=== PATIENT | male | born 1935 | race Two or more races ===

== ENCOUNTER 2018-11-15 11:48 | Inpatient (IN) | payer MEDICARE, MEDICAID ==
[~2018-11-15] VITALS: Ht 172.7 cm; Wt 41.3 kg
[~2018-11-15 11:48] MED LIST: METF-416 PO; SITA100T11 PO; TAMS0.4C31 PO
[2018-11-15] MEDS ORDERED: SODIUM CHLORIDE 0.9% 1,000 ML IV ONE (12:47)
[2018-11-15] MEDS ORDERED: ONDANSETRON HCL 4MG/2ML INJ IV STA (12:47)
[2018-11-15] MEDS ORDERED: VISCOUS LIDOCAINE 2% 15 ML UDC MM STA (12:53)
[2018-11-15 13:25] LABS: BASOPHILS % 0.5 % (0.0-2.0); EOSINOPHILS % 0.7 % (0.0-5.0); HEMATOCRIT. 40.9 % (42.0-52.0); HEMOGLOBIN. 13.5 g/dL (14.0-18.0); LYMPHOCYTES % 10.1 % (20.0-50.0); MEAN CORPUSCULAR HEMOGLOBIN 28.8 pg (28.0-32.0); MEAN CORPUSCULAR VOLUME 87.2 fL (80.0-94.0); MEAN PLATELET VOLUME 10.6 fl (7.4-10.4); MONOCYTES % 5.1 % (2.0-8.0); NEUTROPHILS % 83.6 % (40.0-76.0); PLATELET 179 x1000/uL (130-400); RED BLOOD CELL COUNT 4.69 mill/uL (4.7-6.1); RED CELL DISTRIBUTION WIDTH 14.1 % (11.6-14.6)
[2018-11-15] MEDS ORDERED: ASPIRIN 81MG TABLET PO ONE (13:30)
[2018-11-15 13:33] LABS: CHLORIDE 101 mEq/L (98-107)
[2018-11-15 13:41] LABS: CREATINE KINASE 33 IU/L (39-308)
[2018-11-15 13:44] LABS: CREATINE KINASE MB FRACTION < 1.0 ng/mL (0.5-3.6)
[2018-11-15] MEDS ORDERED: AMLODIPINE 5MG TABLET PO NR (13:45)
[2018-11-15 15:59] LABS: INR 1.2; PARTIAL THROMBOPLASTIN TIME 29.9 sec (23.4-31.0); PROTHROMBIN TIME 12.1 sec (9.6-11.0)
[2018-11-15] MEDS ORDERED: HYDROCODONE/ACETAMINOPHEN 5/325MG TABLET PO PRN (17:15)
[2018-11-15] MEDS ORDERED: ACETAMINOPHEN 325MG TABLET PO PRN (17:15)
[2018-11-15] MEDS ORDERED: MAGNESIUM/ALUMINUM HYDROXIDE/SIMETHICONE 30ML UDC PO PRN (17:15)
[2018-11-15] MEDS ORDERED: CLONIDINE 0.1MG TABLET PO PRN (17:15)
[2018-11-15] MEDS ORDERED: ONDANSETRON HCL 4MG/2ML INJ IV PRN (17:15)
[2018-11-15] MEDS ORDERED: DEXTROSE 50% WATER 50ML SYRINGE IV PRN ×2 (17:15)
[2018-11-15 17:45] LABS: CLARITY URINE CLEAR (CLEAR); COLOR URINE YELLOW (YELLOW); KETONES URINE NEGATIVE (NEGATIVE); LEUKOCYTE ESTERASE URINE 2+ (NEGATIVE); NITRITE URINE POSITIVE (NEGATIVE); OCCULT BLOOD URINE NEGATIVE (NEGATIVE); PH URINE 5.5 (4.5-8.0); PROTEIN URINE NEGATIVE (NEGATIVE); SPECIFIC GRAVITY URINE 1.018 (1.005-1.030)
[2018-11-15 21:05] VITALS: BP 161/84
[2018-11-15 21:30] VITALS: BP 161/84
[2018-11-15] MEDS: BLOOD SUGAR DIAGNOSTIC STRIP TEST SCH (22:00)
[2018-11-15] MEDS: SODIUM CHLORIDE 0.45% 1,000 ML IV SCH (22:55)
[2018-11-16] VITALS: BP 151/79
[2018-11-16] MEDS ORDERED: SITA100T11 MT (03:19)
[2018-11-16] MEDS ORDERED: DILT120T13 MT (03:20)
[2018-11-16] MEDS ORDERED: TRAM50TA94 MT (03:25)
[2018-11-16] MEDS ORDERED: CYCL10TA7 MT (03:29)
[2018-11-16 04:00] VITALS: BP 152/58
[2018-11-16 06:10] LABS: BASOPHILS % 0.5 % (0.0-2.0); EOSINOPHILS % 2.9 % (0.0-5.0); HEMATOCRIT. 37.3 % (42.0-52.0); HEMOGLOBIN. 12.5 g/dL (14.0-18.0); MEAN CORPUSCULAR HEMOGLOBIN 29.3 pg (28.0-32.0); MEAN CORPUSCULAR VOLUME 87.4 fL (80.0-94.0); MEAN PLATELET VOLUME 10.7 fl (7.4-10.4); MONOCYTES % 6.5 % (2.0-8.0); NEUTROPHILS % 75.1 % (40.0-76.0); PLATELET 183 x1000/uL (130-400); RED BLOOD CELL COUNT 4.27 mill/uL (4.7-6.1); RED CELL DISTRIBUTION WIDTH 13.7 % (11.6-14.6)
[2018-11-16 06:33] LABS: CHLORIDE 102 mEq/L (98-107)
[2018-11-16] MEDS: BLOOD SUGAR DIAGNOSTIC STRIP TEST SCH ×4 (06:43→21:00)
[2018-11-16 06:49] LABS: PHOSPHORUS 2.8 mg/dL (2.5-4.9)
[2018-11-16 06:50] LABS: LDL CHOLESTEROL 121 mg/dL (5-100)
[2018-11-16 06:52] LABS: HDL CHOLESTEROL 34 mg/dL (40-59)
[2018-11-16 08:00] VITALS: BP 154/78
[2018-11-16] MEDS: METFORMIN HCL 500MG TABLET PO SCH ×2 (08:46→17:34)
[2018-11-16] MEDS: ASPIRIN 81MG EC TABLET PO SCH (08:46)
[2018-11-16] MEDS: TAMSULOSIN HCL 0.4MG SR CAPSULE PO SCH (08:47)
[2018-11-16] MEDS: AMLODIPINE 5MG TABLET PO SCH (08:47)
[2018-11-16] MEDS: MAGNESIUM OXIDE 400MG TABLET PO SCH (08:47)
[2018-11-16] MEDS ORDERED: POTASSIUM CHLORIDE 20MEQ TABLET SR PO NR (09:15)
[2018-11-16] MEDS ORDERED: MAGNESIUM 2 G PREMIX 50 ML IV NR (10:00)
[2018-11-16] MEDS ORDERED: LEVOFLOXACIN 500MG PREMIX 100 ML IV NR (11:00)
[2018-11-16] MEDS ORDERED: DOCUSATE SODIUM 100MG CAPSULE PO NR (11:15)
[2018-11-16 12:00] VITALS: BP 123/67
[2018-11-16] MEDS ORDERED: IOHEXOL-300 100 ML BOTTLE ONE (15:42)
[2018-11-16] MEDS: DOCUSATE SODIUM 100MG CAPSULE PO SCH (17:34)
[2018-11-16 20:00] VITALS: BP 157/78
[2018-11-16] MEDS: SODIUM CHLORIDE 0.45% 1,000 ML IV SCH (22:28)
[2018-11-17] VITALS: BP 145/81
[2018-11-17 04:00] VITALS: BP 151/75
[2018-11-17] MEDS: BLOOD SUGAR DIAGNOSTIC STRIP TEST SCH ×4 (07:35→21:15)
[2018-11-17 08:00] VITALS: BP 164/74
[2018-11-17] MEDS: MAGNESIUM OXIDE 400MG TABLET PO SCH (08:35)
[2018-11-17] MEDS: TAMSULOSIN HCL 0.4MG SR CAPSULE PO SCH (08:35)
[2018-11-17] MEDS: ASPIRIN 81MG EC TABLET PO SCH (08:35)
[2018-11-17] MEDS: DOCUSATE SODIUM 100MG CAPSULE PO SCH ×2 (08:35→17:01)
[2018-11-17] MEDS: METFORMIN HCL 500MG TABLET PO SCH ×2 (08:35→17:01)
[2018-11-17] MEDS: AMLODIPINE 5MG TABLET PO SCH (08:35)
[2018-11-17 09:34] LABS: BASOPHILS % 0.4 % (0.0-2.0); EOSINOPHILS % 1.9 % (0.0-5.0); HEMATOCRIT. 37.7 % (42.0-52.0); HEMOGLOBIN. 12.5 g/dL (14.0-18.0); LYMPHOCYTES % 14.5 % (20.0-50.0); MEAN CORPUSCULAR HEMOGLOBIN 28.8 pg (28.0-32.0); MEAN CORPUSCULAR VOLUME 86.7 fL (80.0-94.0); MEAN PLATELET VOLUME 10.8 fl (7.4-10.4); MONOCYTES % 4.7 % (2.0-8.0); NEUTROPHILS % 78.5 % (40.0-76.0); PLATELET 181 x1000/uL (130-400); RED BLOOD CELL COUNT 4.35 mill/uL (4.7-6.1); RED CELL DISTRIBUTION WIDTH 13.6 % (11.6-14.6)
[2018-11-17 09:46] LABS: CHLORIDE 100 mEq/L (98-107)
[2018-11-17] MEDS ORDERED: LEVOFLOXACIN 250MG PREMIX 50 ML IV SCH (11:00)
[2018-11-17 12:00] VITALS: BP 139/85
[2018-11-17] MEDS: DILTIAZEM HCL 60MG TABLET PO SCH ×3 (14:09→23:09)
[2018-11-17 16:00] VITALS: BP 122/65
[2018-11-17 20:00] VITALS: BP 147/75
[2018-11-17] MEDS: SODIUM CHLORIDE 0.45% 1,000 ML IV SCH (23:09)
[2018-11-18] VITALS: BP 119/68
[2018-11-18 04:00] VITALS: BP 149/71
[2018-11-18] MEDS: BLOOD SUGAR DIAGNOSTIC STRIP TEST SCH (06:36)
[2018-11-18] MEDS: DILTIAZEM HCL 60MG TABLET PO SCH (06:36)
[2018-11-18 07:02] LABS: BASOPHILS % 0.4 % (0.0-2.0); EOSINOPHILS % 1.4 % (0.0-5.0); HEMATOCRIT. 36.6 % (42.0-52.0); HEMOGLOBIN. 12.3 g/dL (14.0-18.0); LYMPHOCYTES % 14.7 % (20.0-50.0); MEAN CORPUSCULAR HEMOGLOBIN 29.3 pg (28.0-32.0); MEAN CORPUSCULAR VOLUME 87.3 fL (80.0-94.0); MEAN PLATELET VOLUME 11.1 fl (7.4-10.4); MONOCYTES % 5.2 % (2.0-8.0); NEUTROPHILS % 78.3 % (40.0-76.0); PLATELET 171 x1000/uL (130-400); RED CELL DISTRIBUTION WIDTH 13.5 % (11.6-14.6)
[2018-11-18 07:47] LABS: CHLORIDE 103 mEq/L (98-107)
[2018-11-18 08:00] VITALS: BP 100/61
[2018-11-18 08:40] VITALS: BP 100/61
[2018-11-18] MEDS: DOCUSATE SODIUM 100MG CAPSULE PO SCH (09:00)
[2018-11-18] MEDS: METFORMIN HCL 500MG TABLET PO SCH (09:14)
[2018-11-18] MEDS: MAGNESIUM OXIDE 400MG TABLET PO SCH (09:14)
[2018-11-18] MEDS: TAMSULOSIN HCL 0.4MG SR CAPSULE PO SCH (09:14)
[2018-11-18] MEDS: ASPIRIN 81MG EC TABLET PO SCH (09:14)
== END 2018-11-18 11:42 | disposition home health service (06) | DRG 551 ==
LOC: ER 11:48 → 8WST 13:57 → EDBEDREQ 14:07 → EDBEDREQTM 14:07 → ENRESERV 20:02
PROVIDERS: ADMIT Family Medicine Adult Medicine; ATTEND Family Medicine Adult Medicine
DX: S32.029A Unspecified fracture of second lumbar vertebra, initial encounter for closed fracture (principal); Q04.0 Congenital malformations of corpus callosum; N39.0 Urinary tract infection, site not specified; S32.049A Unspecified fracture of fourth lumbar vertebra, initial encounter for closed fracture; E86.0 Dehydration; I10 Essential (primary) hypertension; E11.9 Type 2 diabetes mellitus without complications; E83.42 Hypomagnesemia; M47.9 Spondylosis, unspecified; B96.20 Unspecified Escherichia coli [E. coli] as the cause of diseases classified elsewhere; E87.6 Hypokalemia; W18.39XA Other fall on same level, initial encounter; I48.0 Paroxysmal atrial fibrillation; K59.00 Constipation, unspecified; N40.0 Benign prostatic hyperplasia without lower urinary tract symptoms; Z90.79 Acquired absence of other genital organ(s); Z91.81 History of falling; I25.2 Old myocardial infarction; Z79.4 Long term (current) use of insulin; Y93.89 Activity, other specified; Y92.89 Other specified places as the place of occurrence of the external cause; Y99.8 Other external cause status
CPT/HCPCS: 36415; 71045; 72110; 72132; 72148; 80048; 80061; 82550; 82553; 82962; 83036; 83735; 83880; 84100; 84443; 84484; 87077; 87186; 93005; 93306; 93970; 96361; 96374; 97116; 97162; 97166; 97530; 99291; J1956; J2405; J3475; J7030; Q9967; 97763-GP

== ENCOUNTER 2018-12-17 07:49 | Inpatient (IN) | payer MEDICARE, MEDICAID ==
[~2018-12-17] VITALS: Ht 157.5 cm; Wt 39.9 kg
[~2018-12-17 07:49] MED LIST changes: +CYCL10TA7 MT; +DILT120T13 MT; +TRAM50TA94 MT
[2018-12-17] MEDS ORDERED: MIRT15TA6 PO (07:56)
[2018-12-17] MEDS ORDERED: MAGN200T5 PO (07:56)
[2018-12-17] MEDS ORDERED: LACT10SO6 PO (07:56)
[2018-12-17] MEDS ORDERED: PRED5TAB48 PO (07:56)
[2018-12-17] MEDS ORDERED: SODIUM CHLORIDE 0.9% 1,000 ML IV ONE (08:56)
[2018-12-17 09:31] LABS: CLARITY URINE CLEAR (CLEAR); COLOR URINE YELLOW (YELLOW); KETONES URINE NEGATIVE (NEGATIVE); LEUKOCYTE ESTERASE URINE NEGATIVE (NEGATIVE); NITRITE URINE NEGATIVE (NEGATIVE); OCCULT BLOOD URINE NEGATIVE (NEGATIVE); PH URINE 5.5 (4.5-8.0); PROTEIN URINE NEGATIVE (NEGATIVE); SPECIFIC GRAVITY URINE 1.022 (1.005-1.030); UROBILINOGEN URINE 0.2 E.U./dL (0.2-1.0)
[2018-12-17 09:57] LABS: BASOPHILS % 0.3 % (0.0-2.0); HEMATOCRIT. 41.7 % (42.0-52.0); HEMOGLOBIN. 14.3 g/dL (14.0-18.0); LYMPHOCYTES % 12.5 % (20.0-50.0); MEAN CORPUSCULAR HEMOGLOBIN 29.8 pg (28.0-32.0); MEAN CORPUSCULAR VOLUME 87.1 fL (80.0-94.0); MEAN PLATELET VOLUME 8.5 fl (7.4-10.4); MONOCYTES % 4.1 % (2.0-8.0); NEUTROPHILS % 83.1 % (40.0-76.0); PLATELET 170 x1000/uL (130-400); RED BLOOD CELL COUNT 4.79 mill/uL (4.7-6.1); RED CELL DISTRIBUTION WIDTH 13.5 % (11.6-14.6)
[2018-12-17 10:04] LABS: CHLORIDE 98 mEq/L (98-107); PROTHROMBIN TIME 10.7 sec (9.6-11.0)
[2018-12-17] MEDS ORDERED: SODIUM POLYSTYRENE SULFONATE 15 G/60 ML BOT PO ONE (10:30)
[2018-12-17] MEDS ORDERED: ONDANSETRON HCL 4MG/2ML INJ IV PRN (11:30)
[2018-12-17] MEDS ORDERED: CLONIDINE 0.1MG TABLET PO PRN (11:30)
[2018-12-17] MEDS ORDERED: LORAZEPAM 2MG/ML CPJ IV PRN (11:30)
[2018-12-17] MEDS ORDERED: ENOXAPARIN 40MG/0.4ML SYR SUBCUT SCH (11:30)
[2018-12-17] MEDS ORDERED: HYDROCODONE/ACETAMINOPHEN 5/325MG TABLET PO PRN (11:30)
[2018-12-17] MEDS: SODIUM CHLORIDE 0.9% 1,000 ML IV SCH (11:59)
[2018-12-17 15:53] VITALS: BP 129/75
[2018-12-17 16:00] VITALS: BP 128/76
[2018-12-17] MEDS: ENOXAPARIN 30MG/0.3ML SYR SUBCUT SCH (16:00)
[2018-12-17 20:00] VITALS: BP 135/72
[2018-12-17] MEDS ORDERED: DILTIAZEM HCL 5MG/ML 5ML VIAL IV NR (20:30)
[2018-12-17] MEDS ORDERED: DIGOXIN 500MCG/2ML AMP IV NR (21:44)
[2018-12-17] MEDS ORDERED: DEXTROSE 50% WATER 50ML SYRINGE IV PRN (21:45)
[2018-12-17] MEDS: BLOOD SUGAR DIAGNOSTIC STRIP TEST SCH (21:51)
[2018-12-17] MEDS: INSULIN LISPRO 100 UNITS/ML SUBCUT SCH (22:01)
[2018-12-18] VITALS: BP 132/75
[2018-12-18] MEDS: DILTIAZEM HCL 60MG TABLET PO SCH ×6 (01:32→23:58)
[2018-12-18 04:00] VITALS: BP 136/76
[2018-12-18] MEDS: SODIUM CHLORIDE 0.9% 1,000 ML IV SCH ×3 (06:04→20:48)
[2018-12-18 06:07] LABS: BASOPHILS % 0.3 % (0.0-2.0); EOSINOPHILS % 0.1 % (0.0-5.0); HEMATOCRIT. 36.6 % (42.0-52.0); HEMOGLOBIN. 12.5 g/dL (14.0-18.0); LYMPHOCYTES % 11.5 % (20.0-50.0); MEAN CORPUSCULAR HEMOGLOBIN 29.7 pg (28.0-32.0); MEAN CORPUSCULAR VOLUME 86.8 fL (80.0-94.0); MEAN PLATELET VOLUME 8.9 fl (7.4-10.4); MONOCYTES % 4.4 % (2.0-8.0); NEUTROPHILS % 83.7 % (40.0-76.0); PLATELET 167 x1000/uL (130-400); RED BLOOD CELL COUNT 4.22 mill/uL (4.7-6.1); RED CELL DISTRIBUTION WIDTH 13.3 % (11.6-14.6)
[2018-12-18] MEDS: BLOOD SUGAR DIAGNOSTIC STRIP TEST SCH ×4 (06:26→21:39)
[2018-12-18 06:49] LABS: CHLORIDE 102 mEq/L (98-107)
[2018-12-18] MEDS: INSULIN LISPRO 100 UNITS/ML SUBCUT SCH ×4 (06:53→22:05)
[2018-12-18 08:00] VITALS: BP 118/71
[2018-12-18] MEDS: THIAMINE HCL 100MG TABLET PO SCH (09:27)
[2018-12-18] MEDS: MULTIVITAMINS,THER W-MINERALS TABLET PO SCH (09:27)
[2018-12-18 12:00] VITALS: BP 111/55
[2018-12-18] MEDS ORDERED: POTASSIUM PHOS,M-BASIC-D-BASIC 20 MMOL in DEXT 5% WATER 243.3333 ML IV NR (12:00)
[2018-12-18] MEDS ORDERED: DILTIAZEM HCL 120MG TABLET PO NR ×2 (14:45→16:30)
[2018-12-18] MEDS: ENOXAPARIN 30MG/0.3ML SYR SUBCUT SCH (15:51)
[2018-12-18 16:00] VITALS: BP_SYST 125; BP_DIAS 80; BP_DIAS 81
[2018-12-18] MEDS ORDERED: DILTIAZEM HCL 60MG TABLET PO NR (16:32)
[2018-12-18 20:00] VITALS: BP 121/62
[2018-12-19] VITALS: BP 116/71
[2018-12-19] MEDS: DILTIAZEM HCL 60MG TABLET PO SCH ×3 (06:00→18:00)
[2018-12-19] MEDS: SODIUM CHLORIDE 0.9% 1,000 ML IV SCH (06:32)
[2018-12-19] MEDS: BLOOD SUGAR DIAGNOSTIC STRIP TEST SCH ×4 (06:33→21:00)
[2018-12-19] MEDS: INSULIN LISPRO 100 UNITS/ML SUBCUT SCH ×4 (06:34→21:00)
[2018-12-19 08:00] VITALS: BP 121/66
[2018-12-19] MEDS: THIAMINE HCL 100MG TABLET PO SCH (08:54)
[2018-12-19] MEDS: MULTIVITAMINS,THER W-MINERALS TABLET PO SCH (08:54)
[2018-12-19 10:22] LABS: HEMATOCRIT. 35.6 % (42.0-52.0); MEAN CORPUSCULAR HEMOGLOBIN 29.5 pg (28.0-32.0); MEAN CORPUSCULAR VOLUME 87.4 fL (80.0-94.0); PLATELET 147 x1000/uL (130-400); RED BLOOD CELL COUNT 4.08 mill/uL (4.7-6.1); RED CELL DISTRIBUTION WIDTH 13.5 % (11.6-14.6)
[2018-12-19 10:34] LABS: CHLORIDE 104 mEq/L (98-107)
[2018-12-19 12:00] VITALS: BP_SYST 105; BP_SYST 108; BP_DIAS 51
[2018-12-19 16:00] VITALS: BP 105/58
[2018-12-19] MEDS: ENOXAPARIN 30MG/0.3ML SYR SUBCUT SCH (17:20)
[2018-12-19 18:14] VITALS: BP 102/56
[2018-12-19 20:00] VITALS: BP 112/71
[2018-12-20] VITALS: BP 129/66
[2018-12-20] MEDS: DILTIAZEM HCL 60MG TABLET PO SCH ×4 (00:56→18:09)
[2018-12-20 04:00] VITALS: BP 119/64
[2018-12-20] MEDS: BLOOD SUGAR DIAGNOSTIC STRIP TEST SCH ×4 (07:10→20:30)
[2018-12-20 07:26] LABS: CHLORIDE 107 mEq/L (98-107)
[2018-12-20 07:38] LABS: BASOPHILS % 0.2 % (0.0-2.0); EOSINOPHILS % 0.4 % (0.0-5.0); HEMATOCRIT. 35.4 % (42.0-52.0); HEMOGLOBIN. 12.1 g/dL (14.0-18.0); LYMPHOCYTES % 25.7 % (20.0-50.0); MEAN CORPUSCULAR HEMOGLOBIN 29.8 pg (28.0-32.0); MEAN PLATELET VOLUME 8.5 fl (7.4-10.4); MONOCYTES % 7.1 % (2.0-8.0); NEUTROPHILS % 66.6 % (40.0-76.0); PLATELET 164 x1000/uL (130-400); RED BLOOD CELL COUNT 4.07 mill/uL (4.7-6.1); RED CELL DISTRIBUTION WIDTH 13.3 % (11.6-14.6)
[2018-12-20] MEDS: INSULIN LISPRO 100 UNITS/ML SUBCUT SCH ×4 (07:40→20:48)
[2018-12-20 07:51] LABS: LDL CHOLESTEROL 71 mg/dL (5-100)
[2018-12-20 07:54] LABS: HDL CHOLESTEROL 38 mg/dL (40-59)
[2018-12-20 07:55] LABS: VITAMIN B12 SERUM 1070 pg/mL (211-911)
[2018-12-20 08:00] VITALS: BP 149/71
[2018-12-20] MEDS: MULTIVITAMINS,THER W-MINERALS TABLET PO SCH (09:04)
[2018-12-20] MEDS: THIAMINE HCL 100MG TABLET PO SCH (09:04)
[2018-12-20 12:00] VITALS: BP 108/59
[2018-12-20 14:12] LABS: PLATELET ESTIMATE NORMAL
[2018-12-20] MEDS ORDERED: IPRATROPIUM/ALBUTEROL 0.5-3(2.5)MG/3ML NEB HHN PRN (15:30)
[2018-12-20 16:00] VITALS: BP 127/64
[2018-12-20] MEDS: ENOXAPARIN 30MG/0.3ML SYR SUBCUT SCH (18:05)
[2018-12-20 20:00] VITALS: BP 124/63
[2018-12-21] VITALS: BP 128/76
[2018-12-21] MEDS: DILTIAZEM HCL 60MG TABLET PO SCH ×4 (00:16→17:58)
[2018-12-21 04:00] VITALS: BP 150/76
[2018-12-21] MEDS: INSULIN LISPRO 100 UNITS/ML SUBCUT SCH ×4 (06:19→21:54)
[2018-12-21] MEDS: BLOOD SUGAR DIAGNOSTIC STRIP TEST SCH ×4 (06:49→21:00)
[2018-12-21 07:10] LABS: BASOPHILS % 0.1 % (0.0-2.0); EOSINOPHILS % 0.4 % (0.0-5.0); HEMATOCRIT. 36.6 % (42.0-52.0); HEMOGLOBIN. 12.4 g/dL (14.0-18.0); LYMPHOCYTES % 13.9 % (20.0-50.0); MEAN CORPUSCULAR VOLUME 88.4 fL (80.0-94.0); MEAN PLATELET VOLUME 8.4 fl (7.4-10.4); MONOCYTES % 5.4 % (2.0-8.0); NEUTROPHILS % 80.2 % (40.0-76.0); PLATELET 141 x1000/uL (130-400); RED BLOOD CELL COUNT 4.14 mill/uL (4.7-6.1); RED CELL DISTRIBUTION WIDTH 13.6 % (11.6-14.6)
[2018-12-21 07:31] LABS: CHLORIDE 106 mEq/L (98-107)
[2018-12-21] MEDS: THIAMINE HCL 100MG TABLET PO SCH (08:04)
[2018-12-21] MEDS: MULTIVITAMINS,THER W-MINERALS TABLET PO SCH (08:04)
[2018-12-21 08:14] VITALS: BP 121/63
[2018-12-21 12:00] VITALS: BP 117/60
[2018-12-21 16:26] VITALS: BP 106/68
[2018-12-21] MEDS: ENOXAPARIN 30MG/0.3ML SYR SUBCUT SCH (16:30)
[2018-12-21 19:58] LABS: INR 1.1; PARTIAL THROMBOPLASTIN TIME 30.8 sec (23.4-31.0); PROTHROMBIN TIME 10.9 sec (9.6-11.0)
[2018-12-22] VITALS (7 sets, daily range): BP systolic 100–155; BP diastolic 45–74
[2018-12-22] MEDS: DILTIAZEM HCL 60MG TABLET PO SCH ×4 (00:32→18:00)
[2018-12-22] MEDS: INSULIN LISPRO 100 UNITS/ML SUBCUT SCH ×4 (06:41→21:10)
[2018-12-22] MEDS: BLOOD SUGAR DIAGNOSTIC STRIP TEST SCH ×4 (06:41→20:48)
[2018-12-22 08:16] LABS: BASOPHILS % 0.1 % (0.0-2.0); HEMATOCRIT. 37.6 % (42.0-52.0); HEMOGLOBIN. 12.5 g/dL (14.0-18.0); LYMPHOCYTES % 13.1 % (20.0-50.0); MEAN CORPUSCULAR HEMOGLOBIN 29.1 pg (28.0-32.0); MEAN CORPUSCULAR VOLUME 87.6 fL (80.0-94.0); MEAN PLATELET VOLUME 8.2 fl (7.4-10.4); MONOCYTES % 4.9 % (2.0-8.0); NEUTROPHILS % 81.9 % (40.0-76.0); PLATELET 176 x1000/uL (130-400); RED BLOOD CELL COUNT 4.29 mill/uL (4.7-6.1); RED CELL DISTRIBUTION WIDTH 13.3 % (11.6-14.6)
[2018-12-22 08:57] LABS: CHLORIDE 104 mEq/L (98-107)
[2018-12-22] MEDS: MULTIVITAMINS,THER W-MINERALS TABLET PO SCH (09:00)
[2018-12-22] MEDS: THIAMINE HCL 100MG TABLET PO SCH (09:00)
[2018-12-22] MEDS ORDERED: BACTERIOSTATIC SODIUM CHLORIDE 0.9% 30ML VIAL IJ ONE (12:23)
[2018-12-22] MEDS ORDERED: CEFAZOLIN 1000MG PREMIX 50 ML IV NR (13:00)
[2018-12-22] MEDS ORDERED: SODIUM CHLORIDE 0.45% 1,000 ML IV ONE (13:30)
[2018-12-22] MEDS ORDERED: FENTANYL CITRATE/PF 50MCG/ML 2ML VIAL ONE (15:04)
[2018-12-22] MEDS ORDERED: MIDAZOLAM HCL 5 MG/5 ML VIAL ONE (15:04)
[2018-12-22] MEDS ORDERED: MIDAZOLAM HCL 5 MG/5 ML VIAL IV PRN (15:18)
[2018-12-22] MEDS ORDERED: HYDRALAZINE 20MG/ML VIAL IV ONE (15:30)
[2018-12-22] MEDS ORDERED: HYDRALAZINE 20MG/ML VIAL ONE (15:31)
[2018-12-22] MEDS ORDERED: DILTIAZEM HCL 125 MG in DEXT 5% WATER 100 ML IV PRN (16:00)
[2018-12-22] MEDS: ENOXAPARIN 30MG/0.3ML SYR SUBCUT SCH (16:00)
[2018-12-22] MEDS: DILTIAZEM HCL 5MG/ML 5ML VIAL IV NR ×2 (16:00→17:12)
[2018-12-22] MEDS: MORPHINE SULFATE 2 MG/ML CPJ (NOT FOR IM USE) IV PRN (19:50)
[2018-12-23] VITALS (15 sets, daily range): BP systolic 102–169; BP diastolic 53–86
[2018-12-23] MEDS: MORPHINE SULFATE 2 MG/ML CPJ (NOT FOR IM USE) IV PRN ×3 (00:20→22:16)
[2018-12-23] MEDS: DILTIAZEM HCL 60MG TABLET PO SCH ×2 (00:28→06:00)
[2018-12-23 07:35] LABS: HEMATOCRIT. 32.8 % (42.0-52.0); HEMOGLOBIN. 11.2 g/dL (14.0-18.0); LYMPHOCYTES % 8.7 % (20.0-50.0); MEAN CORPUSCULAR HEMOGLOBIN 29.8 pg (28.0-32.0); MEAN CORPUSCULAR VOLUME 87.4 fL (80.0-94.0); MEAN PLATELET VOLUME 8.7 fl (7.4-10.4); MONOCYTES % 2.5 % (2.0-8.0); NEUTROPHILS % 88.8 % (40.0-76.0); PLATELET 166 x1000/uL (130-400); RED BLOOD CELL COUNT 3.75 mill/uL (4.7-6.1); RED CELL DISTRIBUTION WIDTH 13.6 % (11.6-14.6)
[2018-12-23] MEDS: BLOOD SUGAR DIAGNOSTIC STRIP TEST SCH ×4 (09:08→21:00)
[2018-12-23] MEDS: MULTIVITAMINS,THER W-MINERALS TABLET PO SCH (09:17)
[2018-12-23] MEDS: THIAMINE HCL 100MG TABLET PO SCH (09:17)
[2018-12-23] MEDS: INSULIN LISPRO 100 UNITS/ML SUBCUT SCH ×4 (09:20→21:00)
[2018-12-23 09:32] LABS: CHLORIDE 105 mEq/L (98-107)
[2018-12-23] MEDS: METOPROLOL TARTRATE 25MG TABLET PO SCH ×2 (10:30→21:34)
[2018-12-23] MEDS ORDERED: MAGNESIUM 1 G PREMIX 100 ML IV NR (12:00)
[2018-12-23] MEDS: ENOXAPARIN 30MG/0.3ML SYR SUBCUT SCH (18:35)
[2018-12-24] VITALS (11 sets, daily range): BP systolic 107–148; BP diastolic 54–85
[2018-12-24] MEDS: MORPHINE SULFATE 2 MG/ML CPJ (NOT FOR IM USE) IV PRN ×2 (01:44→16:02)
[2018-12-24] MEDS: BLOOD SUGAR DIAGNOSTIC STRIP TEST SCH ×4 (07:30→21:00)
[2018-12-24] MEDS: MULTIVITAMINS,THER W-MINERALS TABLET PO SCH (08:24)
[2018-12-24] MEDS: METOPROLOL TARTRATE 25MG TABLET PO SCH ×2 (08:24→20:55)
[2018-12-24] MEDS: THIAMINE HCL 100MG TABLET PO SCH (08:24)
[2018-12-24] MEDS: INSULIN LISPRO 100 UNITS/ML SUBCUT SCH ×4 (09:13→21:33)
[2018-12-24 10:29] LABS: HEMATOCRIT. 35.8 % (42.0-52.0); HEMOGLOBIN. 12.2 g/dL (14.0-18.0); MEAN CORPUSCULAR HEMOGLOBIN 30.2 pg (28.0-32.0); MEAN CORPUSCULAR VOLUME 88.5 fL (80.0-94.0); MEAN PLATELET VOLUME 8.6 fl (7.4-10.4); PLATELET 149 x1000/uL (130-400); RED BLOOD CELL COUNT 4.04 mill/uL (4.7-6.1); RED CELL DISTRIBUTION WIDTH 13.9 % (11.6-14.6)
[2018-12-24 10:35] LABS: CHLORIDE 102 mEq/L (98-107)
[2018-12-24] MEDS: ENOXAPARIN 30MG/0.3ML SYR SUBCUT SCH (16:38)
[2018-12-24 20:57] LABS: PLATELET ESTIMATE NORMAL
[2018-12-25] VITALS (10 sets, daily range): BP systolic 92–153; BP diastolic 55–78
[2018-12-25 06:59] LABS: HEMOGLOBIN. 11.6 g/dL (14.0-18.0); MEAN CORPUSCULAR HEMOGLOBIN 29.8 pg (28.0-32.0); MEAN CORPUSCULAR VOLUME 87.7 fL (80.0-94.0); PLATELET 141 x1000/uL (130-400); RED BLOOD CELL COUNT 3.87 mill/uL (4.7-6.1); RED CELL DISTRIBUTION WIDTH 13.7 % (11.6-14.6)
[2018-12-25 07:46] LABS: CHLORIDE 102 mEq/L (98-107)
[2018-12-25 07:51] LABS: PHOSPHORUS 2.7 mg/dL (2.5-4.9)
[2018-12-25] MEDS: BLOOD SUGAR DIAGNOSTIC STRIP TEST SCH ×3 (08:28→17:35)
[2018-12-25] MEDS: MULTIVITAMINS,THER W-MINERALS TABLET PO SCH (09:15)
[2018-12-25] MEDS: INSULIN LISPRO 100 UNITS/ML SUBCUT SCH ×3 (09:18→17:32)
[2018-12-25] MEDS: METOPROLOL TARTRATE 25MG TABLET PO SCH (09:25)
[2018-12-25] MEDS: THIAMINE HCL 100MG TABLET PO SCH (09:25)
[2018-12-25] MEDS: ENOXAPARIN 30MG/0.3ML SYR SUBCUT SCH (17:12)
[2018-12-25 19:38] LABS: PLATELET ESTIMATE NORMAL
== END 2018-12-25 18:40 | DRG 469 ==
LOC: ER 07:49 → 8WST 10:56 → EDBEDREQ 10:57 → ENRESERV 13:10 → 5EST 12-22 18:07
PROVIDERS: ADMIT Internal Medicine Nephrology; ATTEND Internal Medicine Nephrology
PROC: 0DH63UZ Insertion of Feeding Device into Stomach, Percutaneous Approach (ICD-10-PCS; principal; 2018-12-22)
PROC: 0DB58ZX Excision of Esophagus, Via Natural or Artificial Opening Endoscopic, Diagnostic (ICD-10-PCS; 2018-12-22)
PROC: 4A00X4Z Measurement of Central Nervous Electrical Activity, External Approach (ICD-10-PCS; 2018-12-25)
DX: N17.9 Acute kidney failure, unspecified (principal); E43 Unspecified severe protein-calorie malnutrition; G92 Toxic encephalopathy; B37.81 Candidal esophagitis; I48.91 Unspecified atrial fibrillation; R13.10 Dysphagia, unspecified; D64.9 Anemia, unspecified; E11.9 Type 2 diabetes mellitus without complications; E87.1 Hypo-osmolality and hyponatremia; I47.1 Supraventricular tachycardia; E86.0 Dehydration; I10 Essential (primary) hypertension; R62.7 Adult failure to thrive; F03.90 Unspecified dementia, unspecified severity, without behavioral disturbance, psychotic disturbance, mood disturbance, and anxiety; N40.1 Benign prostatic hyperplasia with lower urinary tract symptoms; K29.70 Gastritis, unspecified, without bleeding; K44.9 Diaphragmatic hernia without obstruction or gangrene; K59.00 Constipation, unspecified; N13.8 Other obstructive and reflux uropathy; Z87.440 Personal history of urinary (tract) infections; Z68.1 Body mass index [BMI] 19.9 or less, adult; Z79.84 Long term (current) use of oral hypoglycemic drugs; Z79.899 Other long term (current) drug therapy
CPT/HCPCS: 36415; 70551; 71045; 76700; 80048; 80061; 80076; 82140; 82607; 82728; 82962; 83036; 83540; 83550; 83605; 83735; 84100; 84443; 84484; 86301; 86304; 88305; 88312; 92610; 93005; 93306; 96360; 96361; 97162; 97530; 99285; J0360; J0690; J1160; J1650; J1815; J2060; J2250; J2270; J2405; J3010; J3475; J3490; J7030; J7050; J7060; A4315

== ENCOUNTER 2019-01-28 11:45 | Emergency (ER) | payer MEDICARE, MEDICAID ==
[~2019-01-28] VITALS: Ht 167.6 cm; Wt 46.0 kg
[~2019-01-28 11:45] MED LIST changes: +CLON0.1T PO; -CYCL10TA7 MT; -DILT120T13 MT; +ENOX40DI8 SQ; +INSU100V37 SQ; +IPRA3AMP31 IH; +LORA0.5T2 PO; -METF-416 PO; +METO1TAB26 MT; +MOM PO; -SITA100T11 PO; -TAMS0.4C31 PO; +THIA50TA11 PO; -TRAM50TA94 MT; +[UNRECOGNIZED DRUG - CODE] IJ
[2019-01-28] MEDS ORDERED: LIDOCAINE HCL/PF 1% 10 MG/ML 5ML VIAL IJ ONE (12:15)
[2019-01-28] MEDS ORDERED: CLINDAMYCIN 600 MG in DEXTROSE 5% WATER 50 ML IV ONE (12:30)
[2019-01-28 12:45] LABS: BASOPHILS % 0.3 % (0.0-2.0); EOSINOPHILS % 0.4 % (0.0-5.0); HEMATOCRIT. 37.6 % (42.0-52.0); HEMOGLOBIN. 12.4 g/dL (14.0-18.0); LYMPHOCYTES % 16.7 % (20.0-50.0); MEAN CORPUSCULAR HEMOGLOBIN 29.9 pg (28.0-32.0); MEAN CORPUSCULAR VOLUME 90.4 fL (80.0-94.0); MEAN PLATELET VOLUME 9.5 fl (7.4-10.4); NEUTROPHILS % 77.6 % (40.0-76.0); PLATELET 255 x1000/uL (130-400); RED BLOOD CELL COUNT 4.16 mill/uL (4.7-6.1); RED CELL DISTRIBUTION WIDTH 15.8 % (11.6-14.6)
[2019-01-28 12:54] LABS: CHLORIDE 102 mEq/L (98-107)
[2019-01-28] MEDS ORDERED: CLINDAMYCIN 600MG PREMIX 50 ML IV NR (13:15)
[2019-01-28] MEDS ORDERED: PIPERACILLIN/TAZOBACTAM 3.375GM/50ML PREMIX IV SCH (23:45)
[2019-01-29 01:00] VITALS: BP 129/61
[2019-01-29] MEDS ORDERED: VANCOMYCIN 1500MG in DEXTROSE 5% WATER 250ML IV SCH (02:00)
== END 2019-01-29 03:40 | disposition short-term general hospital (02) ==
LOC: ER 12:55
DX: S63.692A Other sprain of right middle finger, initial encounter (principal); I48.91 Unspecified atrial fibrillation; F03.90 Unspecified dementia, unspecified severity, without behavioral disturbance, psychotic disturbance, mood disturbance, and anxiety; E11.9 Type 2 diabetes mellitus without complications; I10 Essential (primary) hypertension; X58.XXXA Exposure to other specified factors, initial encounter; Y93.89 Activity, other specified; Y92.89 Other specified places as the place of occurrence of the external cause; Y99.8 Other external cause status; Z98.890 Other specified postprocedural states; Z79.4 Long term (current) use of insulin; Z79.899 Other long term (current) drug therapy
CPT/HCPCS: 10060; 36415; 80053; 85025; 96365; 96375; 99285; J2543; J3370; J3490; J7060

== ENCOUNTER 2019-02-14 17:53 | Emergency (ER) | payer MEDICARE, MEDICAID ==
[~2019-02-14] VITALS: Ht 172.7 cm; Wt 50.0 kg
[2019-02-14] MEDS ORDERED: DIATR MEGLU/DIATRIZOATE SOLN 30ML ONE (19:47)
[2019-02-14 21:35] VITALS: BP 118/50
== END 2019-02-14 22:42 | disposition home or self-care (01) ==
LOC: ER 17:53
DX: Z93.1 Gastrostomy status (principal); I48.91 Unspecified atrial fibrillation; F03.90 Unspecified dementia, unspecified severity, without behavioral disturbance, psychotic disturbance, mood disturbance, and anxiety; E11.9 Type 2 diabetes mellitus without complications; I10 Essential (primary) hypertension; Z79.899 Other long term (current) drug therapy; Z79.4 Long term (current) use of insulin
CPT/HCPCS: 43762; 74021; 99284; Q9963